=== PATIENT | female | born 1970 | race Caucasian/White ===

== ENCOUNTER 2022-03-16 10:13 | Outpatient (CLI) | payer BC, SELFPAY ==
[2022-03-16 13:43] LABS: Chloride* 106 mmol/L (96-114); Potassium* 4.7 mmol/L (3.6-5.1); Sodium* 140 mmol/L (135-149)
[2022-03-16 13:46] LABS: Blood Urea Nitrogen* 16 mg/dL (7-30); Carbon Dioxide* 26 mmol/L (20-32); Cholesterol* 207 mg/dL (90-199); Creatinine* 0.7 mg/dL (0.5-1.5); Estimated Glomerular Filt Rate 105 ml/min
[2022-03-16 13:47] LABS: Calcium* 8.9 mg/dL (8.4-10.6); Glucose* 83 mg/dL (60-115); HDL Cholesterol* 87 mg/dL (>=50); LDL Cholesterol Calculated 111 mg/dL (<100); Triglycerides* 46 mg/dL (40-149)
== END 2022-03-16 10:14 | disposition home or self-care (01) ==
PROVIDERS: PCP Family Medicine; Visit Provider Family Medicine
DX: Z01.419 Encounter for gynecological examination (general) (routine) without abnormal findings (principal); R53.83 Other fatigue; D70.9 Neutropenia, unspecified; E28.319 Asymptomatic premature menopause; Z13.6 Encounter for screening for cardiovascular disorders
CPT/HCPCS: 80048; 80061; 84443

== ENCOUNTER 2022-04-07 13:42 | Outpatient (CLI) | payer BC, SELFPAY ==
--- NOTE | 2022-04-07 14:00 | CRLHL7_ITS ---
For Patients: As a result of the Century Cures Act, medical imaging exams and procedure reports are released immediately into your electronic medical record. You may view this report before your referring provider. If you have questions, please contact your health care provider. BILATERAL SCREENING MAMMOGRAM WITH COMPUTER-AIDED DETECTION AND TOMOSYNTHESIS TECHNIQUE: CC and MLO views were obtained. These mammographic images have been obtained using full-field digital technique. These mammographic images were interpreted with the benefit of computer-aided detection. Breast Tomosynthesis was used in this interpretation. COMPARISON FILM: [place]. FINDINGS: There are scattered areas of fibroglandular density IMPRESSION: There is no radiographic evidence for malignancy. ASSESSMENT: BI-RADS Category 1: Negative RECOMMENDATION: Routine screening mammogram in 1 year. A lay language report of this examination will be provided to the patient. Blaise Gamino M.D. Diagnostic Radiologist [email or web address] Transcribed: 3:38 pm DW/Dictated by: Blaise Gamino MD @ 04/08/2022 4:08:00 PM (Electronically Signed)
== END 2022-04-07 13:43 | disposition home or self-care (01) ==
PROVIDERS: PCP Family Medicine; Visit Provider Family Medicine
DX: Z12.31 Encounter for screening mammogram for malignant neoplasm of breast (principal)
CPT/HCPCS: 77063; 77067

== ENCOUNTER 2022-04-22 13:16 | Outpatient (CLI) | payer BC, SELFPAY ==
--- NOTE | 2022-04-22 13:30 | CRLHL7_ITS ---
For Patients: As a result of the Century Cures Act, medical imaging exams and procedure reports are released immediately into your electronic medical record. You may view this report before your referring provider. If you have questions, please contact your health care provider. DXA BONE MINERAL DENSITY STUDY 04/22/2022 Current height (in): 67.0. Weight (lb): 215.0. Menopause age: 44. Ethnicity: White. 1. Have you had a previous hip or vertebral fracture? No. 2. Have you had any fractures during your adult life which did not result from significant trauma (e.g., auto accident)? No. 3. Did either of your parents have a hip fracture? No. 4. Do you smoke? No. 5. Have you ever taken Glucocorticoids? No. 6. Do you have rheumatoid arthritis? No. 7. Do you have secondary osteoporosis? No. 8. Do you drink 3 or more alcoholic drinks per day? No. 9. Are you being treated for osteoporosis? No. 10. Have you ever taken any of the following medications: Actonel, Evista, Fosamax, Miacalcin, Reclast, Boniva, Forteo, HRT (i.e. estrogen/hormone therapy), Protelos, Prolia, Vitamin D, Calcium, other ??? please specify. ANSWER: Yes, vitamin D. 11. Do you have any of the following medical conditions: Anorexia or bulimia, asthma or emphysema, end stage renal disease, hyperparathyroidism, any seizure disorders, cancer, inflammatory bowel diseases, hysterectomy, other ??? please specify. ANSWER: No. 12. What was your maximum height (inches)? 68. 13. Do you perform weight bearing exercise regularly? No. 14. Do you regularly consume dairy products? No. 15. Do you drink caffeinated beverages? Yes. 16. At what age did your period start? 14. 17. Are you premenopausal? No. 18. How many full term pregnancies have you had? 2. 19. Have you ever missed your period for more than 6 months in a row (not including or menopause)? No. TECHNIQUE: Bone mineral density study was performed using the [employer]. FINDINGS: The results of the study expressed as bone mineral density (BMD) are as follows: Lumbar spine L1 to L4 BMD: 1.057 g/cm2. T-score: 0.1. Z-score: 0.8. Neck Left: BMD: 0.901 g/cm2. T-score: 0.5. Z-score: 1.2. Right: BMD: 0.963 g/cm2. T-score: 1.0. Z-score: 1.8. Total Left: BMD: 1.067 g/cm2. T-score: 1.0. Z-score: 1.5. Right: BMD: 1.048 g/cm2. T-score: 0.9. Z-score: 1.3. IMPRESSION: Normal bone density. Blaise Gamino M.D. Diagnostic Radiologist [email or web address] [email or web address] / be/Dictated by: Blaise Gamino MD @ 04/23/2022 1:18:00 PM (Electronically Signed)
== END 2022-04-22 13:17 | disposition home or self-care (01) ==
LOC: RAD 13:17
PROVIDERS: PCP Family Medicine; Visit Provider Family Medicine
DX: E28.319 Asymptomatic premature menopause (principal)
CPT/HCPCS: 77080

== ENCOUNTER 2022-04-30 11:51 | Outpatient (CLI) | payer BC, SELFPAY | END 2022-04-30 11:52 | disposition home or self-care (01) | LOC: OP CLINIC 11:53 | PROVIDERS: PCP Family Medicine; Visit Provider Surgery | DX: Z12.11 Encounter for screening for malignant neoplasm of colon (principal); K63.5 Polyp of colon | CPT/HCPCS: 45385; 88305; J1200; J2250; J3010 ==

== ENCOUNTER 2024-05-26 08:09 | Outpatient (CLI) | payer BC, SELFPAY | END 2024-05-26 08:10 | disposition home or self-care (01) | LOC: NFLDREF 05-30 23:57 | PROVIDERS: PCP Family Medicine; Referring Provider Family Medicine; Visit Provider Family Medicine | DX: E78.00 Pure hypercholesterolemia, unspecified (principal); D70.9 Neutropenia, unspecified | CPT/HCPCS: 80053; 80061 ==

== ENCOUNTER 2024-06-08 14:31 | Outpatient (CLI) | payer BC, SELFPAY ==
--- NOTE | 2024-06-08 14:40 | CRLHL7_ITS ---
For Patients: As a result of the Cures Act, medical imaging exams and procedure reports are released immediately into your electronic medical record. You may view this report before your referring provider. If you have questions, please contact your health care provider. BILATERAL SCREENING MAMMOGRAM WITH COMPUTER-AIDED DETECTION AND TOMOSYNTHESIS TECHNIQUE: CC and MLO views were obtained. These mammographic images have been obtained using full-field digital technique. These mammographic images were interpreted with the benefit of computer-aided detection. Breast Tomosynthesis was used in this interpretation. COMPARISON FILM: 04/07/22, 04/04/18, 07/02/15. FINDINGS: The breasts are almost entirely fatty IMPRESSION: There is no radiographic evidence for malignancy. ASSESSMENT: BI-RADS Category 1: Negative RECOMMENDATION: Routine screening mammogram in 1 year. A lay language report of this examination will be provided to the patient. Blaise Gamino M.D. Diagnostic Radiologist [email or web address] Transcribed: 2:06 p.yung petit/Dictated by: Blaise Gamino MD @ 06/09/2024 10:56:00 AM (Electronically Signed)
== END 2024-06-08 14:32 | disposition home or self-care (01) ==
LOC: MAMMO 14:32
PROVIDERS: PCP Family Medicine; Visit Provider Family Medicine
DX: Z12.31 Encounter for screening mammogram for malignant neoplasm of breast (principal)
CPT/HCPCS: 77063; 77067

== ENCOUNTER 2024-06-13 12:49 | Outpatient (CLI) | payer BC, SELFPAY ==
--- NOTE | 2024-06-13 13:00 | CRLHL7_ITS ---
For Patients: As a result of the Century Cures Act, medical imaging exams and procedure reports are released immediately into your electronic medical record. You may view this report before your referring provider. If you have questions, please contact your health care provider. EXAM: MRI OF THE LEFT SHOULDER WITHOUT CONTRAST CLINICAL INDICATION: Left shoulder pain. COMPARISON PLAIN FILMS: 06/02/2024. COMPARISON CROSS-SECTIONAL IMAGING STUDIES: None available at time of interpretation. TECHNICAL: Axial, sagittal oblique and coronal oblique T1, PD, PD FS and T2-weighted images. Shoulder surface coil. FINDINGS: ROTATOR CUFF TENDONS AND MUSCLES AND DELTOID: Supraspinatus: Mild increased signal in the supraspinatus tendon consistent with tendinopathy. No tendon tear. No muscle atrophy or edema. Infraspinatus: No tendinosis, tendon tearing, muscle atrophy or muscle edema. Subscapularis: No tendinosis, tendon tearing, muscle atrophy or muscle edema. Teres Minor: No tendinosis, tendon tearing, muscle atrophy or muscle edema. Deltoid: No muscle atrophy or edema. BURSA: Subacromial-subdeltoid: No abnormal bursal edema, thickening or bursal fluid. BICEPS TENDON, LONG HEAD: The long head of the biceps tendon is appropriately positioned within the bicipital groove without tendon subluxation or dislocation. The biceps lindsey mechanism is intact. The biceps anchor appears grossly intact. There is no significant tendinosis or tendon tearing. CORACOACROMIAL ARCH: Acromial Morphology: Type 1 acromial morphology. No abnormal lateral or anterior downward sloping of the acromion. No significant subacromial spur. No os acromiale. Acromiohumeral Interval: Normal. Coracohumeral Interval: Normal. ACROMIOCLAVICULAR JOINT REGION: AC Joint: Mild arthropathy with small inferior marginal osteophytes. Ligaments: The coracoclavicular ligaments are intact. GLENOHUMERAL JOINT: Joint space: No effusion or synovitis. Humeral Head Articular Cartilage: No focal cartilage defect or underlying subchondral marrow changes. Glenoid Articular Cartilage: No focal cartilage defect or underlying subchondral marrow changes. Labrum: No labral tear or paralabral cyst. Alignment: Maintained. Capsule: No capsular edema or abnormal capsular thickening. OSSEOUS STRUCTURES: No fracture, marrow edema or marrow replacement process. OTHER FINDINGS: There is no abnormality within the suprascapular or spinoglenoid notches nor within the quadrilateral space. No axillary adenopathy or mass. IMPRESSION: 1. Mild supraspinatus tendinopathy. 2. Mild arthropathy of the acromioclavicular joint. Dictated by Burt Villagomez MD @ 06/14/2024 8:53:32 AM (Electronically Signed)
== END 2024-06-13 12:50 | disposition home or self-care (01) ==
LOC: MRI 12:49
PROVIDERS: PCP Family Medicine; Visit Provider Family Medicine
DX: M25.512 Pain in left shoulder (principal); M12.811 Other specific arthropathies, not elsewhere classified, right shoulder
CPT/HCPCS: 73221

== ENCOUNTER 2024-07-25 11:15 | Outpatient (RCR) | payer BC, SELFPAY | END 2024-10-02 10:18 | disposition home or self-care (01) | PROVIDERS: PCP Family Medicine; Visit Provider Orthopaedic Surgery | DX: M75.81 Other shoulder lesions, right shoulder (principal); M75.82 Other shoulder lesions, left shoulder; Z51.89 Encounter for other specified aftercare | CPT/HCPCS: 97110; 97140; 97161 ==